=== PATIENT | female | born 1975 | race Caucasian/White ===

== ENCOUNTER 2019-03-30 19:43 | Emergency (ER) | payer OTHER ==
[~2019-03-30] VITALS: Ht 154.9 cm; Wt 60.3 kg
[2019-03-30 19:46] VITALS: Ht 154.9 cm; Wt 60.3 kg
[2019-03-30 20:42] VITALS: BP 103/70
== END 2019-03-30 20:42 | disposition home or self-care (01) ==
LOC: ED 19:43
DX: J11.1 Influenza due to unidentified influenza virus with other respiratory manifestations (principal); N39.0 Urinary tract infection, site not specified